=== PATIENT | male | born 1955 | race Caucasian/White ===

== ENCOUNTER 2020-08-28 13:08 | Emergency (ER) | payer SELFPAY ==
[~2020-08-28] VITALS: Ht 180.3 cm; Wt 65.0 kg
--- NOTE | 2020-08-28 13:35 | NUR ---
PROVIDER AT BEDSIDE
--- NOTE | 2020-08-28 13:35 | NUR ---
BIB EMS FOR C/O RIGHT WRIST PAIN FOLLOWING A GLF "ABOUT 2 HOURS AGO". PT IN ROOM WITH PROVIDER AT BEDSIDE. PT STATES HE DOES NOT WANT TO BE TREATED AND HE WANTS TO GO "TO ANOTHER HOSPITAL".
[2020-08-28 13:45] VITALS: BP 137/84
--- NOTE | 2020-08-28 15:13 | NUR ---
PT UPSET HE WASNT GETTING [employer]. PT ELOPED.
== END 2020-08-28 15:14 | disposition left against medical advice (07) ==
LOC: ED 14:29
DX: G89.11 Acute pain due to trauma (principal); M25.531 Pain in right wrist; W01.0XXA Fall on same level from slipping, tripping and stumbling without subsequent striking against object, initial encounter; Y93.89 Activity, other specified; Y92.009 Unspecified place in unspecified non-institutional (private) residence as the place of occurrence of the external cause; Y99.8 Other external cause status
CPT/HCPCS: 99283